=== PATIENT | female | born 1990 | race African-American/Black ===

== ENCOUNTER 2019-06-28 11:44 | Emergency (ER) | payer BC, OTHER ==
[~2019-06-28] VITALS: Ht 157.5 cm; Wt 77.1 kg
[2019-06-28 11:47] VITALS: BP 112/74
--- NOTE | 2019-06-28 11:52 | NUR ---
ED Nurse Note: Pt. [id number]. Pt stated she slammed her R hand to the gate 1 week ago, swelling and bruise noted on 4th and 5th finger of the R hand
--- NOTE | 2019-06-28 11:57 | Emergency Room Report ---
History of Present Illness General Chief Complaint: Upper Extremity Injury Source: Patient Present Illness HPI Patient is a 29-year-old female presents after increased right-sided hand pain. Patient reports of increased pain to the fourth and fifth metacarpal. She reports having increased pain with movements. Injury occurred several days prior to arrival. She reports taking ibuprofen which had been relieving the pain. She denies any numbness. She has been able to move her hand well. Patient is left-hand dominant. 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 Allergies: Coded Allergies: No Known Allergies (Unverified , 06/28/19) Patient History Past Medical History: see triage record Last Menstrual Period: 05/2019 Now: No Reviewed Nursing Documentation: PMH: Agreed; PSxH: Agreed Nursing Documentation-PMH Past Medical History: No Stated History Review of Systems All Other Systems: negative except mentioned in HPI Physical Exam Vital Signs Date Time Temp Pulse Resp B/P (MAP) Pulse Ox O2 Delivery O2 Flow Rate FiO2 06/28/19 11:47 98.8 93 20 112/74 97 Room Air General Appearance: well appearing, no apparent distress, alert, GCS 15 Head: normocephalic, atraumatic ENT: hearing grossly normal, normal voice Neck: full range of motion, supple Respiratory: normal inspection, no respiratory distress, speaking full sentences Cardiovascular #1: normal inspection Gastrointestinal: normal inspection Musculoskeletal: other - right hand swelling and deformity to 4th and 5th metacarpal Neurologic: normal inspection, alert, oriented x3, responsive, normal gait Psychiatric: mood/affect normal Skin: normal inspection Medical Decision Making Diagnostic Impression: Primary Impression: Right hand fracture ER Course Patient presented for right hand pain. Differential diagnosis include was not limited to fracture, contusion, dislocation, cellulitis among others. X-ray imaging of the right hand was ordered due to the patient's recent injury. X- ray imaging of the right hand read by radiology showed fourth metacarpal fracture. Patient was placed in an ulnar gutter splint. Patient was given oral pain medications. She advised to follow-up with orthopedics. She is given a note for work. Patient is to return if she had any worsening condition or other concerns. Last Vital Signs Date Time Temp Pulse Resp B/P (MAP) Pulse Ox O2 Delivery O2 Flow Rate FiO2 06/28/19 11:47 98.8 93 20 112/74 (87) 97 Room Air Status: improved Disposition: HOME, SELF-CARE Condition: Stable Scripts Ibuprofen* (MOTRIN*) 600 Mg Tablet 600 MG ORAL Q6H PRN for For Pain, #20 TAB 0 Refills Prov: Gelacio Porter MD 06/28/19 Hydrocodone Bit/Acetaminophen 5-325* (NORCO 5-325*) 1 Each Tablet 1 TAB ORAL Q6H PRN for For Pain, #20 TAB 0 Refills Prov: Gelacio Porter MD 06/28/19 Gelacio Porter MD Jun 28, 2019 11:57
--- NOTE | 2019-06-28 12:10 | NUR ---
ED Nurse Note: xray at the bedside
[2019-06-28] MEDS ORDERED: NORCO 5-325 TA1 EACH ORAL (12:19)
[2019-06-28] MEDS ORDERED: IBUPROFEN600 MG ORAL (12:19)
--- NOTE | 2019-06-28 12:22 | Diagnostic Imaging Report ---
EXAM: XR Right Hand Complete, 3 or More Views CLINICAL HISTORY: PAIN TECHNIQUE: Frontal, lateral and oblique views of the right hand. COMPARISON: No relevant prior studies available. FINDINGS: Bones/joints: Fracture of the fourth metacarpal. Soft tissues: Soft tissue swelling. IMPRESSION: Fracture of the fourth metacarpal.
[2019-06-28 12:48] VITALS: BP 126/70
--- NOTE | 2019-06-28 12:48 | NUR ---
ER DISCHARGE NOTE: Patient is cleared to be discharged per ERMD, pt is aox4, on room air, with stable vital signs. pt was given dc and prescription instructions, pt was able to verbalize understanding, pt id band removed without complications. pt is able to ambulate with steady gait. pt took all belongings.
== END 2019-06-28 12:48 | disposition home or self-care (01) ==
LOC: EMR 12:29
DX: S62.304A Unspecified fracture of fourth metacarpal bone, right hand, initial encounter for closed fracture (principal); X58.XXXA Exposure to other specified factors, initial encounter; Y92.9 Unspecified place or not applicable
CPT/HCPCS: 29125; 81025; 99283